=== PATIENT | female | born 1975 | race Caucasian/White ===

== ENCOUNTER 2022-01-07 22:38 | Emergency (ER) | payer OTHER ==
--- NOTE | 2022-01-08 00:13 | ED ---
General Adult HPI - General Chief complaint: Recheck/Abnormal Lab/Rx Stated complaint: THC consumption, vomiting Time Seen by Provider: 01/07/22 22:50 Source: EMS Mode of arrival: EMS Limitations: no limitations - History of Present Illness Initial comments: This patient is a 46-year-old woman who arrives here from rehabilitation [facility]. Patient had been very somnolent and a suspected she had taken something. While here the patient stated that she had a condom with some prescribed medications in her vagina. Please note that the stated complaint above (from triage) had been entered in error -: hour(s) Severity scale (1-10): 0 Improves with: none Worsens with: none Associated Symptoms: denies other symptoms - Related Data Allergies Allergy/AdvReac Type Severity Reaction Status Date / Time No Known Allergies Allergy Verified 01/07/22 23:02 Review of Systems ROS Statement: Those systems with pertinent positive or pertinent negative responses have been documented in the HPI. ROS Other: All systems not noted in ROS Statement are negative. Constitutional: Denies: fever, chills Respiratory: Denies: cough, dyspnea Cardiovascular: Denies: chest pain, palpitations, syncope Gastrointestinal: Denies: abdominal pain, vomiting, diarrhea Genitourinary: Reports: as per HPI. Denies: dysuria, frequency, hematuria Musculoskeletal: Denies: back pain Neurological: Denies: headache Past Medical History Past Medical History: No Reported History History of Any Multi-Drug Resistant Organisms: None Reported Past Surgical History: No Surgical Hx Reported Past Psychological History: Anxiety, Depression Smoking Status: Current every day smoker Past Alcohol Use History: Abuse, Daily, Heavy Past Drug Use History: Cocaine, Marijuana, Prescription Drug Abuse General Exam Limitations: no limitations General appearance: alert, in no apparent distress Respiratory exam: Present: normal lung sounds bilaterally. Absent: respiratory distress, wheezes, rales, rhonchi, stridor Cardiovascular Exam: Present: regular rate, normal rhythm, normal heart sounds. Absent: systolic murmur, diastolic murmur, rubs, gallop GI/Abdominal exam: Present: soft. Absent: distended, tenderness, guarding, rebound, rigid, mass External exam: Present: normal external exam. Absent: erythema, swelling, lesions, lacerations, ecchymosis Speculum exam: Present: foreign body Neurological exam: Present: alert, oriented X3 Skin exam: Present: warm, dry, intact, normal color. Absent: rash Course Vital Signs 01/07/22 01/08/22 22:59 00:39 Temperature 98.1 F 97.0 F L Pulse Rate 102 H 85 Respiratory 18 16 Rate Blood Pressure 138/74 119/87 O2 Sat by Pulse 98 97 Oximetry Medical Decision Making - Medical Decision Making Patient's 47-year-old woman who had placed continence containing medications into her vagina and was sent from rehabilitation Center to have this removed. Patient did agree to exam and I did remove 2 condoms that had medications in them. They were both tied and there was no leakage of any of the medication. The patient was feeling better and stable for discharge back to rehab facility Disposition Clinical Impression: Foreign body in vagina Disposition: HOME SELF-CARE Condition: Good Is patient prescribed a controlled substance at d/c from ED?: No Referrals: None,Stated [Primary Care Provider] - 1-2 days
[2022-01-08 00:54] VITALS: BP 119/87; PULSE 85; RESP 16; TEMP 97
== END 2022-01-08 02:31 | disposition home or self-care (01) ==
LOC: EC 22:38
DX: T19.2XXA Foreign body in vulva and vagina, initial encounter (principal); F41.9 Anxiety disorder, unspecified; F32.A Depression, unspecified; F17.200 Nicotine dependence, unspecified, uncomplicated; F12.90 Cannabis use, unspecified, uncomplicated
CPT/HCPCS: 99283